=== PATIENT | female | born 1955 | race Caucasian/White ===

== ENCOUNTER → 2020-04-03 | Outpatient (CLI) | payer OTHER ==
[~2020-04-03] MED LIST: CLEOCIN HCL300 MG PO; PERCOCET 5/325 T1 EA PO
== END ==
LOC: KOH-I 10:38
DX: R07.89 Other chest pain (principal); R91.8 Other nonspecific abnormal finding of lung field
CPT/HCPCS: 71046

== ENCOUNTER → 2020-06-04 | Outpatient (CLI) | payer BC | LOC: KOH-I 08:30 | DX: Z13.6 Encounter for screening for cardiovascular disorders (principal); I77.811 Abdominal aortic ectasia | CPT/HCPCS: 76700 ==

== ENCOUNTER → 2020-10-20 | Outpatient (CLI) | payer SELFPAY | LOC: KOH-I 15:53 | DX: M25.552 Pain in left hip (principal); M54.5 Low back pain; M48.54XA Collapsed vertebra, not elsewhere classified, thoracic region, initial encounter for fracture; M48.56XA Collapsed vertebra, not elsewhere classified, lumbar region, initial encounter for fracture | CPT/HCPCS: 72100; 73502 ==